=== PATIENT | male | born 1950 | race Caucasian/White ===

== ENCOUNTER 2020-09-01 22:44 | Observation (INO) | payer MEDICARE ==
[2020-09-01] MEDS ORDERED: Sucralfate 1 GM Tab PO ONE (23:05)
[2020-09-01] MEDS ORDERED: Nitroglycerin 0.4 MG Tab.SL SL ONE ×2 (23:05→23:22)
--- NOTE | 2020-09-01 23:11 | EDM.PDOC ---
ED HPI GENERAL MEDICAL PROBLEM - General Chief Complaint: ENT Problem Stated Complaint: THROAT SPASMS Time Seen by Provider: 09/01/20 22:52 Source of Information: Reports: Patient, Old Records History Limitations: Reports: No Limitations - History of Present Illness INITIAL COMMENTS - FREE TEXT/NARRATIVE: Ebenezer is a 70-year-old male presenting to the ED for evaluation of esophageal spasm. Patient states that he gets it about every 4 months. He previously was diagnosed with eosinophilic esophagitis, however, he has not had been taking any medicine for this including PPIs, acid reducers like H2 blockers, or even magnesium salts. The patient does intermittently get this and takes his nitroglycerin, however, today hers had and was no longer very effective. Patient presented the ED earlier tonight but after vomiting he felt better and left before being seen. He returns with recurrence of his esophageal spasm. He is nauseous and trying to make himself throw up. He denies any fever or chills. He last had an EGD approximately 10 years ago. He denies any symptoms consistent with reflux like he had years ago. The patient reports that he ate chicken salad for breakfast and then tonight ate a couple pieces of chicken and a couple pieces of steak. He denies any spicy or acidic foods. His symptoms started several hours ago but improved briefly after he vomited. Throat Pain Score (Numeric/FACES): 7 - Related Data Allergies Allergy/AdvReac Type Severity Reaction Status Date / Time No Known Allergies Allergy Verified 09/01/20 22:56 Home Meds: Home Meds Aspirin [Halfprin] 81 mg PO DAILY 09/01/20 [History] atorvaSTATin [Lipitor] 10 mg PO BEDTIME 09/01/20 [History] Past Medical History HEENT History: Reports: Other (See Below) Other HEENT History: esophageal spasms - Infectious Disease History Infectious Disease History: Reports: Chicken Pox, Measles, Mumps Social & Family History - Tobacco Use Tobacco Use Status *Q: Never Tobacco User - Caffeine Use Caffeine Use: Reports: Coffee - Alcohol Use Days Per Week of Alcohol Use: 7 Number of Drinks Per Day: 1 Total Drinks Per Week: 7 - Recreational Drug Use Recreational Drug Use: No ED ROS ENT - Review of Systems Review Of Systems: See Below Constitutional: Reports: No Symptoms HEENT: Reports: No Symptoms Respiratory: Reports: No Symptoms Cardiovascular: Reports: Chest Pain (Retrosternal) Endocrine: Reports: No Symptoms GI/Abdominal: Reports: Abdominal Pain (Epigastric), Difficulty Swallowing (Patient symptoms started after he ate a couple pieces of chicken and a couple pieces of steak and then started to choke. He thought that it was his esophageal spasm.), Nausea (He has been having recurrent episodes of nausea which do relieve his symptoms for a short time. The emesis appears to be mostly saliva.), Vomiting : Reports: No Symptoms Musculoskeletal: Reports: No Symptoms Skin: Reports: No Symptoms Neurological: Reports: No Symptoms Psychiatric: Reports: Anxiety Hematologic/Lymphatic: Reports: No Symptoms Immunologic: Reports: No Symptoms ED EXAM, ENT - Physical Exam Exam: See Below Exam Limited By: No Limitations General Appearance: Alert, Anxious, Moderate Distress Eye Exam: Bilateral Eye: EOMI, PERRL Mouth/Throat: Normal Inspection, Normal Teeth Head: Atraumatic, Normocephalic Neck: Normal Inspection, Supple Respiratory/Chest: No Respiratory Distress, Lungs Clear, Normal Breath Sounds Cardiovascular: Normal Peripheral Pulses, Regular Rate, Rhythm, No Murmur GI/Abdominal: Normal Bowel Sounds, Soft, No Distention, Tender (Mild epigastric tenderness to palpation). No: Guarding, Rigid, Rebound Back: Normal Inspection Extremities: Normal Inspection Neurological: Alert, Oriented, Normal Cognition, No Motor/Sensory Deficits Psychiatric: Normal Affect, Anxious Skin: Warm, Dry, Intact, Normal Color Lymphatic: No Adenopathy #1 Interpretation EKG Date: 09/01/20 Time: 23:17 Rhythm: NSR Rate (Beats/Min): 91 [place]: LAD-Left Wyn[place] Deviation P-Wave: Present QRS: Normal (Left anterior fascicular block. Poor R wave progression in the precordial leads.) ST-T: Normal QT: Normal Comparison: NA - No Prior EKG Course - Vital Signs Last Recorded V/S: Last Vital Signs Temp 36.5 C 09/01/20 23:00 Pulse 69 09/01/20 23:38 Resp 22 H 09/01/20 23:00 BP 114/55 L 09/01/20 23:38 Pulse Ox 100 09/01/20 23:00 - Orders/Labs/Meds Orders: Active Orders 24 hr Category Date Time Status EKG Documentation Completion [RC] ASDIRECTED Care 09/01/20 23:16 Active LORazepam [Ativan] Med 09/02/20 00:11 Once 1 mg IVPUSH ONETIME ONE Sodium Chloride 0.9% @ 125 MLS/HR (1000ml) Med 09/02/20 00:15 Ordered Sodium Chloride 0.9% [Normal Saline] 1,000 ml IV ASDIRECTED Sodium Chloride 0.9% [Saline Flush] Med 09/02/20 00:11 Ordered 10 ml FLUSH ASDIRECTED PRN Saline Lock Insert [OM.PC] Routine Oth 09/02/20 00:11 Ordered EKG 12 Lead [EK] Routine Ther 09/01/20 23:16 Ordered Labs: Laboratory Tests 09/01/20 09/01/20 Range/Units 23:27 23:27 WBC 12.9 H (4.5-11.0) K/uL RBC 4.71 (4.30-5.90) M/uL Hgb 14.9 (12.0-15.0) g/dL Hct 43.0 (40.0-54.0) % MCV 91 (80-98) fL MCH 32 H (27-31) pg MCHC 35 (32-36) % Plt Count 133 L (150-400) K/uL Neut % (Auto) 61.0 (36-66) % Lymph % (Auto) 36.2 (24-44) % [place] % (Auto) 2.4 (2-6) % Eos % (Auto) 0.2 L (2-4) % Baso % (Auto) 0.2 (0-1) % Sodium 141 (140-148) mmol/L Potassium 3.9 (3.6-5.2) mmol/L Chloride 104 (100-108) mmol/L Carbon Dioxide 23 (21-32) mmol/L Anion Gap 14.1 H (5.0-14.0) mmol/L BUN 13 (7-18) mg/dL Creatinine 1.1 (0.8-1.3) mg/dL Est Cr Clr Drug Dosing 63.60 mL/min Estimated GFR (MDRD) > 60 (>60) Glucose 106 (74-106) mg/dL Calcium 9.2 (8.5-10.1) mg/dL Troponin I < 0.017 (0.000-0.056) ng/mL Meds: Medications Discontinued Medications Generic Name Dose Route Start Last Admin Trade Name Mont[place]errat PRN Reason Stop Dose Admin Nitroglycerin 0.4 mg 09/01/20 23:05 09/01/20 23:10 Nitroglycerin 0.4 Mg Tab.Sl SL 09/01/20 23:06 0.4 mg ONETIME ONE Administration Nitroglycerin 0.4 mg 09/01/20 23:22 09/01/20 23:25 Nitroglycerin 0.4 Mg Tab.Sl SL 09/01/20 23:23 0.4 mg ONETIME ONE Administration Sucralfate 1 gm 09/01/20 23:05 09/01/20 23:11 Sucralfate 1 Gm Tab PO 09/01/20 23:06 1 gm ONETIME ONE Administration - Re-Assessments/Exams Free Text/Narrative Re-Assessment/Exam: 09/01/20 23:25 the patient was given a single nitroglycerin 4 mg sublingual without improvement. This was repeated after the EKG with additional dose of nitroglycerin. In addition he was given Carafate 1 g p.o. Patient stated that the oxygen the normally helps him is not helping at this time. 09/01/20 23:42 after the second nitroglycerin, the patient had another emesis and had relief of his symptoms. This is certainly concerning for acute gastritis and esophagitis. I do basic labs including a CBC, comprehensive metabolic panel, and troponin I. His EKG was reviewed and shows normal sinus rhythm without evidence for acute ischemia or injury pattern. The patient did have poor R wave progression suggesting perhaps an old anterior CA versus left anterior fascicular block. 09/01/20 23:56 the patient is acting more like a food bolus impaction in the esophagus. He is only vomiting what appears to be saliva and only a small amount like his esophagus is filling up with secretions and then he vomits. This offers him a small amount of relief for a short amount of time until that reaccumulates. We will try warm Coca-Cola to see if this helps force things through, otherwise I will contact Dr. Mccord and arrange for endoscopy for food bolus impaction. The patient is very apprehensive about trying to drink anything at this time, but is willing to try if it avoids endoscopy. 09/01/20 23:58 his CBC was reviewed showing a leukocyte count of 12.9 with a normal differential. His hemoglobin is 14.9 with a hematocrit of 43.0 and a platelet count of 133,000. The comprehensive metabolic panel is significant for sodium 141, potassium 3.9, chloride of 104, bicarbonate of 23, BUN of 13 with a creatinine of 1.1 and a glucose of 106. Patient's calcium is 9.2. Troponin is negative at less than 0.017. E 09/02/20 00:11 I discussed the case with Dr. Mccord as the Coca-Cola was unsuccessful. He would like the patient admitted and he will plan on taking him to the operating room for endoscopy in the morning. The patient was given lorazepam 1 mg IV and started on normal saline at 125 mL/h. He will remain n.p.o. from this point forward. Discussed the case with Nyla Cha, [facility] will arrange for the admission of the patient. Family is also in agreement with this plan. Departure - Departure Time of Disposition: 00:13 Disposition: Refer to Observation Clinical Impression: Esophageal obstruction due to food impaction - Discharge Information Referrals: PCP,None [Primary Care Provider] - Forms: ED Department Discharge Sepsis Event Note (ED) - Evaluation Sepsis Screening Result: No Definite Risk - Focused Exam Vital Signs: Vital Signs Temp Pulse Resp BP BP Pulse Ox 09/01/20 23:38 69 114/55 L 09/01/20 23:29 80 120/66 09/01/20 23:25 125/60 09/01/20 23:10 115/69 09/01/20 23:09 71 115/70 09/01/20 23:00 36.5 C 69 22 H 115/69 100 09/01/20 22:54 36.5 C 69 22 H 115/69 100 - Problem List & Annotations (1) Esophageal obstruction due to food impaction SNOMED Code(s): 296835225 Code(s): K22.2 - ESOPHAGEAL OBSTRUCTION; T18.128A - FOOD IN ESOPHAGUS CAUSING OTHER INJURY, INITIAL ENCOUNTER Status: Acute Priority: High Current Visit: Yes - Problem List Review Problem List Initiated/Reviewed/Updated: Yes - My Orders Last 24 Hours: My Active Orders 09/01/20 23:16 EKG Documentation Completion [RC] ASDIRECTED EKG 12 Lead [EK] Routine 09/02/20 00:11 LORazepam [Ativan] 1 mg IVPUSH ONETIME ONE Sodium Chloride 0.9% [Saline Flush] 10 ml FLUSH ASDIRECTED PRN Saline Lock Insert [OM.PC] Routine 09/02/20 00:15 Sodium Chloride 0.9% @ 125 MLS/HR (1000ml) Sodium Chloride 0.9% [Normal Saline] 1,000 ml IV ASDIRECTED - Assessment/Plan Last 24 Hours: My Active Orders 09/01/20 23:16 EKG Documentation Completion [RC] ASDIRECTED EKG 12 Lead [EK] Routine 09/02/20 00:11 LORazepam [Ativan] 1 mg IVPUSH ONETIME ONE Sodium Chloride 0.9% [Saline Flush] 10 ml FLUSH ASDIRECTED PRN Saline Lock Insert [OM.PC] Routine 09/02/20 00:15 Sodium Chloride 0.9% @ 125 MLS/HR (1000ml) Sodium Chloride 0.9% [Normal Saline] 1,000 ml IV ASDIRECTED
[2020-09-02] MEDS ORDERED: Sodium Chloride 0.9% 10 ML Syringe FLUSH PRN (00:11)
[2020-09-02] MEDS ORDERED: LORazepam 2 MG/ML SDV IVPUSH ONE (00:11)
[2020-09-02] MEDS ORDERED: Sodium Chloride 0.9% 1,000 ML IV SCH ×2 (00:15→01:02)
[2020-09-02] MEDS ORDERED: Pantoprazole 40 MG Vial IV ONE (01:02)
[2020-09-02] MEDS ORDERED: Morphine 2 MG/ML SYRINGE IVPUSH PRN (01:02)
[2020-09-02] MEDS ORDERED: LORazepam 2 MG/ML SDV IV PRN (01:02)
[2020-09-02] MEDS ORDERED: Ondansetron 4 MG/2 ML SDV IV PRN (01:02)
[2020-09-02] MEDS ORDERED: Albuterol 0.083% 2.5 MG/3 ML Neb Soln NEB PRN (01:02)
--- NOTE | 2020-09-02 01:04 | PCM.HP.2 ---
H&P History of Present Illness - General Date of Service: 09/02/20 Admit Problem/Dx: Admission Diagnosis/Problem Admission Diagnosis/Problem Food impaction of esophagus Source of Information: Patient, Family (), Provider, RN - History of Present Illness Onset of Symptoms: Reports: Today Symptom Onset Date: 09/01/20 Symptom Onset Time: 18:30 Duration of Symptoms: Reports: Hour(s):, Waxing/Waning Location: Reports: Neck Quality: Reports: Same as Previous Episode (reports has had 8 choking events in the past- which usually resolved with SL Nitro and Oxygen) Severity: Severe Improves with: Reports: None Worsens with: Reports: Eating Context: Reports: Other (eating steak and chicken at 6:30 pm and feels a choking sensation in chest/throat) Associated Symptoms: Reports: No Other Symptoms Throat Pain Score (Numeric/FACES): 7 - Related Data Allergies/Adverse Reactions: Allergies Allergy/AdvReac Type Severity Reaction Status Date / Time No Known Allergies Allergy Verified 09/01/20 22:56 Home Medications: Home Meds Aspirin [Halfprin] 81 mg PO DAILY 09/01/20 [History] atorvaSTATin [Lipitor] 10 mg PO BEDTIME 09/01/20 [History] Past Medical History HEENT History: Reports: Other (See Below) Other HEENT History: esophageal spasms - Infectious Disease History Infectious Disease History: Reports: Chicken Pox, Measles, Mumps Social & Family History - Tobacco Use Tobacco Use Status *Q: Never Tobacco User - Caffeine Use Caffeine Use: Reports: Coffee - Alcohol Use Days Per Week of Alcohol Use: 7 Number of Drinks Per Day: 1 Total Drinks Per Week: 7 - Recreational Drug Use Recreational Drug Use: No - Living Situation & Occupation Living situation: Reports: (lives in the [facility] with , in [place] for vacation. Renting a cabin.) H&P Review of Systems - Review of Systems: Review Of Systems: See Below HEENT: Reports: No Symptoms Pulmonary: Reports: No Symptoms Cardiovascular: Reports: No Symptoms Gastrointestinal: Reports: Difficulty Swallowing, Nausea, Vomiting Genitourinary: Reports: No Symptoms Musculoskeletal: Reports: No Symptoms Skin: Reports: No Symptoms Psychiatric: Reports: No Symptoms Neurological: Reports: No Symptoms Hematologic/Lymphatic: Reports: No Symptoms Immunologic: Reports: No Symptoms Exam - Exam Exam: See Below - Vital Signs Vital Signs: Last Vital Signs Temp 97.7 F 09/01/20 23:00 Pulse 69 09/01/20 23:38 Resp 22 H 09/01/20 23:00 BP 114/55 L 09/01/20 23:38 Pulse Ox 100 09/01/20 23:00 Weight: 178 lb 2.136 oz - Exam General: Alert, Oriented, Cooperative, Mild Distress, Other (70 year old male pleasant and polite. wearing summer clothes. well tanned.) HEENT: PERRLA, Hearing Intact, Mucosa Moist & Ophiem, Nares Patent, Normal Nasal Septum, Posterior Pharynx Clear, Conjunctiva Clear, EOMI, EACs Clear, TMs Clear Neck: Supple, Trachea Midline, 2 Lungs: Clear to Auscultation, Normal Respiratory Effort Cardiovascular: Regular Rate, Regular Rhythm GI/Abdominal Exam: Normal Bowel Sounds, Soft, Non-Tender, No Organomegaly, No Distention, No Abnormal Bruit, No Mass, Pelvis Stable (Male) Exam: Deferred Rectal (Males) Exam: Deferred Back Exam: Normal Inspection, Full Range of Motion, NT Extremities: Normal Inspection, Normal Range of Motion, Non-Tender, No Pedal Edema, Normal Capillary Refill Peripheral Pulses: 2+: Radial (L), Radial (R), Dorsalis Pedis (L), Dorsalis Pedis (R) Skin: Warm, Dry, Intact Neurological: Cranial Nerves Intact, Reflexes Equal Bilateral Neuro Extensive - Mental Status: Alert, Oriented x3, Normal Mood/Affect, Normal Cognition Neuro Extensive - Motor, Sensory, Reflexes: CN II-XII Intact, Normal Gait, Normal Reflexes Psychiatric: Alert, Normal Affect, Normal Mood - Patient Data Lab Results Last 24 hrs: Laboratory Results - last 24 hr 09/01/20 09/01/20 Range/Units 23:27 23:27 WBC 12.9 H (4.5-11.0) K/uL RBC 4.71 (4.30-5.90) M/uL Hgb 14.9 (12.0-15.0) g/dL Hct 43.0 (40.0-54.0) % MCV 91 (80-98) fL MCH 32 H (27-31) pg MCHC 35 (32-36) % Plt Count 133 L (150-400) K/uL Neut % (Auto) 61.0 (36-66) % Lymph % (Auto) 36.2 (24-44) % [place] % (Auto) 2.4 (2-6) % Eos % (Auto) 0.2 L (2-4) % Baso % (Auto) 0.2 (0-1) % Sodium 141 (140-148) mmol/L Potassium 3.9 (3.6-5.2) mmol/L Chloride 104 (100-108) mmol/L Carbon Dioxide 23 (21-32) mmol/L Anion Gap 14.1 H (5.0-14.0) mmol/L BUN 13 (7-18) mg/dL Creatinine 1.1 (0.8-1.3) mg/dL Est Cr Clr Drug Dosing 63.60 mL/min Estimated GFR (MDRD) > 60 (>60) Glucose 106 (74-106) mg/dL Calcium 9.2 (8.5-10.1) mg/dL Troponin I < 0.017 (0.000-0.056) ng/mL Result Diagrams: 09/01/20 23:27 09/01/20 23:27 Sepsis Event Note - Evaluation Sepsis Screening Result: No Definite Risk - Focused Exam Vital Signs: Vital Signs Temp Pulse Resp BP BP Pulse Ox 09/01/20 23:38 69 114/55 L 09/01/20 23:29 80 120/66 09/01/20 23:25 125/60 09/01/20 23:10 115/69 09/01/20 23:09 71 115/70 09/01/20 23:00 97.7 F 69 22 H 115/69 100 09/01/20 22:54 97.7 F 69 22 H 115/69 100 - Problem List (1) Esophageal obstruction due to food impaction SNOMED Code(s): 764248534 ICD Code: K22.2 - ESOPHAGEAL OBSTRUCTION; T18.128A - FOOD IN ESOPHAGUS CAUSING OTHER INJURY, INITIAL ENCOUNTER Status: Acute Priority: High Current Visit: Yes Problem List Initiated/Reviewed/Updated: Yes Orders Last 24hrs: Active Orders 24 hr Category Date Time Status Patient Status Manage Transfer [TRANSFER] Routine ADT 09/02/20 00:38 Ordered EKG Documentation Completion [RC] ASDIRECTED Care 09/01/20 23:16 Active COVID-19/FLU A+B/RSV [MOLEC] Stat Lab 09/02/20 00:23 Ordered Sodium Chloride 0.9% [Normal Saline] 1,000 ml Med 09/02/20 00:15 Active IV ASDIRECTED Sodium Chloride 0.9% [Saline Flush] Med 09/02/20 00:11 Active 10 ml FLUSH ASDIRECTED PRN Isolation [COMM] Stat Oth 09/02/20 00:23 Ordered Saline Lock Insert [OM.PC] Routine Oth 09/02/20 00:11 Ordered Resuscitation Status Routine Resus Stat 09/02/20 00:41 Ordered EKG 12 Lead [EK] Routine Ther 09/01/20 23:16 Ordered Medication Orders Sodium Chloride (Normal Saline) 1,000 mls @ 125 mls/hr IV ASDIRECTED FILOMENA Last Admin: 09/02/20 00:30 Dose: 125 mls/hr Documented by: CHIDI Sodium Chloride (Sodium Chloride 0.9% 10 Ml Syringe) 10 ml FLUSH ASDIRECTED PRN PRN Reason: Keep Vein Open Last Admin: 09/02/20 00:30 Dose: 10 ml Documented by: CHIDI Assessment/Plan Comment:: ASSESSMENT / PLAN: Esophageal Obstruction due to food impaction Esophageal Obstruction due to food impaction- This is a 70 year old male p resented to the ER for evaluation of choking event while eating. He reports this has happen 8 times- he is usually able to resolve this himself with his 's nitro, coke, and oxygen - but was unable to "release the plug". ER Dept. tried Nitro and Oxygen without relief. Consult to Dr. Adalid Mccord- recommends admission with Endoscopy in am. and Mrs. Alegre agree with plan of care. He reports general good health, daily medications include a baby aspirin and Lipitor 10 mg. denies any chronic health conditions. Esophageal Obstruction due to food impaction -Admit Observation 2 North for further monitoring -NPO -IV Fluids for rehydration NS at 125mL per hour -IV Zofran prn nausea -IV medication for anxiety- IV Ativan 1 mg every 4 hours as needed -IV Protonix 40 mg once -IV Morphine 2mg every 2 hours as needed for pain control -supplemental oxygen as needed to keep oxygen sat >92% -consult to Dr. Mccord- will have endoscopy in am Maintenance issues -Orders home medication on hold -Nutrition: NPO -Monge catheter: not indicated at this time -DVT: ambulate -PPI: IV Protonix 40 mg one time CODE STATUS: FULL Admission status: Admit to Observation -I expect this patient to stay less than 24 hours, not to exceed 96 hours for evaluation and management of this problem admission status: Admit to [address] [place] [address] Disposition: home with Primary care provider: [facility] Hospitalist: Dr. Alvarado Surgeon: Dr. Marie Mccord - Mortality Measure Prognosis:: Good
[2020-09-02 01:19] LABS: CORONAVIRUS COVID-19 NAA NEGATIVE (NEGATIVE)
--- NOTE | 2020-09-02 11:19 | DISCH ---
ADMISSION DIAGNOSIS: Esophageal obstruction due to food impaction. DISCHARGE DIAGNOSIS: Resolution of esophageal obstruction due to food impaction. HISTORY: Ebenezer is a 70-year-old male who presented to the emergency room for evaluation of choking event while eating. He said this has happened 8 times prior to coming into the emergency room. He has a history of , and he said normally it will resolve if he takes his 's nitro, drinks Coke, and has oxygen. This time, he was unable to relieve the impaction, so he presented to the ER. He was admitted to have an upper endoscopy with Adalid Mccord MD, today, but when entering the room, he states that the food has passed and he feels like he does not need an upper endoscopy. Ebenezer was given a full liquid diet and able to be discharged to home. PHYSICAL EXAMINATION: GENERAL: Ebenezer is a 70-year-old male. VITAL SIGNS: Height 5 feet 7 inches, weight is 176 pounds. TPR is 97.4, 67, 16, blood pressure 118/58. HEENT: Negative. NECK: Supple. HEART: Regular rate and rhythm. LUNGS: Clear. ABDOMEN: Negative. EXTREMITIES: Negative. DISPOSITION: Discharged to home. FOLLOWUP: To follow up with primary care provider or his GI specialist. HOME MEDICATIONS: Levsin sublingual 0.125 mg q.4 hours p.r.n. esophageal spasms, #30. He is to resume his home medications which include Lipitor 10 mg at bedtime, aspirin 81 mg daily. DIET: Full liquid diet and advance as tolerated. Notify provider if any nausea or vomiting. Resume normal activity. /[id number]
== END 2020-09-02 08:25 | disposition home or self-care (01) ==
LOC: JP.ED 22:44 → JP.MS 09-02 00:38
PROVIDERS: ADMIT Internal Medicine; ATTEND Surgery
DX: K22.2 Esophageal obstruction (principal); T18.128A Food in esophagus causing other injury, initial encounter; Z53.09 Procedure and treatment not carried out because of other contraindication; Z79.82 Long term (current) use of aspirin; Z79.899 Other long term (current) drug therapy; Z20.822 Contact with and (suspected) exposure to COVID-19
CPT/HCPCS: 0241U; 36415; 80048; 84484; 85025; 93005; 96374; 96375; 99285; A9270; C9113; G0378; J2060; J7030